=== PATIENT | male | born 1950 | race Caucasian/White ===

== ENCOUNTER 2017-09-17 08:56 | Outpatient (CLI) | payer MEDICARE ==
[~2017-09-17] VITALS: Ht 180.3 cm; Wt 112.5 kg
[2017-09-17] MEDS ORDERED: ZINC50TA51 PO (09:13)
[2017-09-17] MEDS ORDERED: MULT1CAP21 PO (09:13)
[2017-09-17] MEDS ORDERED: MULT-35 PO (09:13)
[2017-09-17] MEDS ORDERED: RIVA20TA PO (09:13)
[2017-09-17] MEDS ORDERED: KETO5DRO14 OS (09:13)
[2017-09-17] MEDS ORDERED: SIMV10TA3 PO (09:13)
[2017-09-17] MEDS ORDERED: MAGN400T39 PO (09:13)
[2017-09-17] MEDS ORDERED: DIGE1TAB PO (09:13)
[2017-09-17] MEDS ORDERED: ASCO500C17 PO (09:13)
[2017-09-17] MEDS ORDERED: LEVO200T6 PO (09:13)
[2017-09-17] MEDS ORDERED: LORA1TAB59 PO (09:13)
[2017-09-17] MEDS ORDERED: NFIPRATRNS NS (09:13)
[2017-09-17] MEDS ORDERED: DILT240T10 PO (09:13)
[2017-09-17] MEDS ORDERED: LISI-552 PO (09:13)
[2017-09-17] MEDS ORDERED: TIMO5DRO5 OP (09:13)
[2017-09-17] MEDS ORDERED: AMIO200T2 PO (09:13)
[2017-09-17 09:19] VITALS: BP 134/76
[2017-09-17 10:13] LABS: BASOPHILS % (AUTO) 0 % (0-10); EOSINOPHILS # (AUTO) 0.1 10^3/uL (0.0-0.3); EOSINOPHILS % (AUTO) 1 % (0-10); LYMPHOCYTES # (AUTO) 1.3 X 10^3 (1.0-4.0); LYMPHOCYTES % (AUTO) 18 % (12-44); MEAN CORPUSCULAR HEMOGLOBIN 30 PG (25-34); MEAN CORPUSCULAR HGB CONC 34 G/DL (32-36); MEAN CORPUSCULAR VOLUME 89 FL (80-99); MEAN PLATELET VOLUME 9.9 FL (7.4-10.4); MONOCYTES % (AUTO) 14 % (0-12); NEUTROPHILS # (AUTO) 4.8 X 10^3 (1.8-7.8); NEUTROPHILS % (AUTO) 67 % (42-75); PLATELET COUNT 239 10^3/uL (130-400); RED BLOOD COUNT 4.63 10^6/uL (4.35-5.85); RED CELL DISTRIBUTION WIDTH 14.9 % (10.0-14.5); WHITE BLOOD COUNT 7.3 10^3/uL (4.3-11.0)
[2017-09-17 10:34] LABS: CALCIUM 9.1 MG/DL (8.5-10.1); CREATININE SERUM 1.2 MG/DL (0.60-1.30); POTASSIUM 4.2 MMOL/L (3.6-5.0)
--- NOTE | 2017-09-17 10:57 | Diagnostic Imaging Report ---
PA and lateral views of the chest Indication: Preoperative evaluation. Squamous of carcinoma Findings: The lungs are clear. The heart size is normal. There is no effusion or pneumothorax The mediastinum and sravani appear unremarkable. Impression: Unremarkable study. Dictated by: Dictated on workstation # [id number]
== END 2017-09-17 11:45 ==
LOC: PREOP 08:56
PROVIDERS: ATTEND Otolaryngology Otolaryngology/Facial Plastic Surgery
DX: Z01.810 Encounter for preprocedural cardiovascular examination (principal); Z01.812 Encounter for preprocedural laboratory examination; Z11.2 Encounter for screening for other bacterial diseases; C44.320 Squamous cell carcinoma of skin of unspecified parts of face
CPT/HCPCS: 36415; 71020; 80048; 85025; 87081; 93005

== ENCOUNTER 2017-09-23 07:37 | Day surgery (SDC) | payer MEDICARE ==
[~2017-09-23] VITALS: Ht 180.3 cm; Wt 112.5 kg
[~2017-09-23 07:37] MED LIST: AMIO200T2 PO; ASCO500C17 PO; DIGE1TAB PO; DILT240T10 PO; KETO5DRO14 OS; LEVO200T6 PO; LISI-552 PO; LORA1TAB59 PO; MAGN400T39 PO; MULT-35 PO; MULT1CAP21 PO; NFIPRATRNS NS; RIVA20TA PO; SIMV10TA3 PO; TIMO5DRO5 OP; ZINC50TA51 PO
[2017-09-23 07:51] VITALS: BP 145/78
[2017-09-23] MEDS ORDERED: LACTATED RINGERS 1,000 ML IV PRN ×2 (07:56→07:57)
[2017-09-23] MEDS ORDERED: ONDANSETRON 4 MG/2 ML (SDV) Z0FRAN IV ONE (08:00)
[2017-09-23] MEDS ORDERED: FAMOTIDINE 20MG/2ML IV (PEPCID) IV ONE (08:00)
[2017-09-23] MEDS ORDERED: SCOPOLAMINE 1.5 MG (TRANSDERM-SCOP) PATCH TOP ONE (08:00)
[2017-09-23] MEDS ORDERED: FAMOTIDINE 20MG/2ML IV (PEPCID) ONE (10:09)
[2017-09-23] MEDS ORDERED: SCOPOLAMINE 1.5 MG (TRANSDERM-SCOP) PATCH ONE (10:09)
[2017-09-23] MEDS ORDERED: ONDANSETRON 4 MG/2 ML (SDV) Z0FRAN ONE (10:09)
[2017-09-23] MEDS ORDERED: LIDOCAINE/EPI 1%-1:200,000 (XYLOCAINE) 10 ML VIAL ONE (11:15)
--- NOTE | 2017-09-23 12:07 | Progress Note-Pre Operative ---
Pre-Operative Progress Note H&P Reviewed The H&P was reviewed, patient examined and no changes noted. Date Seen by Provider: Sep 23, 2017 Time Seen by Provider: 11:00 Date H&P Reviewed: Sep 23, 2017 Time H&P Reviewed: 11:00 Pre-Operative Diagnosis: Squamous Cell Carcinoma of Left Cheek CECELIA OLIVERA MD Sep 23, 2017 12:07 pm
--- NOTE | 2017-09-23 12:08 | Progress Note-Post Operative ---
Post-Operative Progess Note Surgeon (s)/Water Pollution Scientist (s) Surgeon CECELIA OLIVERA MD Water Pollution Scientist n/a Pre-Operative Diagnosis Squamous Cell Carcinoma of Left Cheek Post-Operative Diagnosis same Post-Op Procedure Note Date of Procedure: Sep 23, 2017 Name of Procedure Performed: Excision of Squaomous cell carcinoma of Left Cheek with Frozen sections Description & Findings Description and Findings: n/a Anesthesia Type local Estimated Blood Loss minimal Packing none. Specimen(s) collected/removed left cheek lesion-margins clear on frozen CECELIA OLIVERA MD Sep 23, 2017 12:08 pm
[2017-09-23] MEDS ORDERED: ACETAMINOPHEN 325 MG TABLET/CAPLET (TYLENOL) PO PRN (12:15)
[2017-09-23 12:20] VITALS: BP 149/72
[2017-09-23 12:53] VITALS: BP 149/72
== END 2017-09-23 12:53 | disposition home or self-care (01) ==
LOC: SDC 07:37
PROVIDERS: ATTEND Otolaryngology Otolaryngology/Facial Plastic Surgery
DX: C44.320 Squamous cell carcinoma of skin of unspecified parts of face (principal); I10 Essential (primary) hypertension; I48.91 Unspecified atrial fibrillation; E03.9 Hypothyroidism, unspecified; I44.0 Atrioventricular block, first degree; G47.33 Obstructive sleep apnea (adult) (pediatric); I25.2 Old myocardial infarction; Z79.01 Long term (current) use of anticoagulants; Z79.899 Other long term (current) drug therapy
CPT/HCPCS: 88305; 88331; 88332

== ENCOUNTER → 2018-07-28 | Outpatient (CLI) | payer MEDICARE ==
[~2018-07-28] MED LIST changes: -AMIO200T2 PO; +AMIO200T4 PO
--- NOTE | 2018-07-28 18:02 | Diagnostic Imaging Report ---
INDICATION: Obesity and hypertension as well as dyspnea on exertion. TIME OF EXAM: 03:17 p.m. Correlation is made with prior study from 09/17/2017. FINDINGS: The heart size is normal. The pulmonary vascularity is unremarkable. The lungs are clear. No infiltrate, effusion or pneumothorax is detected. IMPRESSION: No acute cardiopulmonary process is detected. Dictated by: Dictated on workstation # [id number]
== END ==
LOC: RAD 14:42
PROVIDERS: ATTEND Internal Medicine Cardiovascular Disease
DX: I48.0 Paroxysmal atrial fibrillation (principal); E66.9 Obesity, unspecified; I10 Essential (primary) hypertension
CPT/HCPCS: 71046

== ENCOUNTER → 2018-09-05 | Outpatient (CLI) | payer MEDICARE | LOC: CARD 13:57 | PROVIDERS: ATTEND Internal Medicine Cardiovascular Disease | DX: I10 Essential (primary) hypertension (principal); I48.0 Paroxysmal atrial fibrillation; R06.09 Other forms of dyspnea; I34.0 Nonrheumatic mitral (valve) insufficiency; E66.9 Obesity, unspecified; Z68.34 Body mass index [BMI] 34.0-34.9, adult | CPT/HCPCS: 93306 ==

== ENCOUNTER → 2018-09-07 | Outpatient (CLI) | payer MEDICARE ==
[~2018-09-07] MED LIST changes: +REGADENOSON 0.4 MG/5 ML SYR (LEXISCAN) IV ONE
[2018-09-07] MEDS: CATHETER FLUSH 10 ML SYR IV PRN ×2 (07:34→09:03)
[2018-09-07 08:56] VITALS: BP 155/73
--- NOTE | 2018-09-07 11:41 | STRESS TEST ---
DATE OF SERVICE: 09/07/2018 LEXISCAN MYOVIEW STRESS TEST REPORT Baseline heart rate is 64. Baseline blood pressure is 156/69. Baseline EKG is sinus rhythm with no ischemic changes. In summary, the patient was injected with 10.71 mCi of technetium-99 Myoview and the resting images were obtained. Then, the patient received 0.4 mg of Lexiscan followed by 30.5 mCi of technetium-99 Myoview. Throughout the test, there were no EKG changes. The resting and stress images were reviewed and compared in the short axis, horizontal long axis and vertical long axis views, the patient was unable to lift his left arm, which caused some artifacts affecting the quality of the inferior wall images. Overall, there is fixed defect at the basal to mid inferior wall with no significant ischemia. SSS is 4. SDS is 0. TID value is 1.13. On the gated images, the left ventricle appeared to be in normal size with normal contractility. Calculated ejection fraction is 53%. CONCLUSION: 1. The patient tolerated the Lexiscan well. 2. Extracardiac attenuation affecting the quality of the images, no significant ischemia or infarction was noted. 3. Normal left ventricular size with normal contractility. Calculated ejection fraction is 53%. Job ID: [id number] DocumentID: [id number] Dictated Date: 09/07/2018 11:25:02 Information Coder Date: 09/07/2018 11:41:47 Dictated By: EMI DIAL MD
== END ==
LOC: CARD 06:52
PROVIDERS: ATTEND Internal Medicine Cardiovascular Disease
DX: I10 Essential (primary) hypertension (principal); I48.0 Paroxysmal atrial fibrillation; R06.09 Other forms of dyspnea; E66.9 Obesity, unspecified; Z68.34 Body mass index [BMI] 34.0-34.9, adult
CPT/HCPCS: 78452; 93017

== ENCOUNTER 2018-10-26 20:02 | Emergency (ER) | payer MEDICARE ==
[~2018-10-26] VITALS: Ht 180.3 cm; Wt 108.9 kg
[~2018-10-26 20:02] MED LIST changes: -REGADENOSON 0.4 MG/5 ML SYR (LEXISCAN) IV ONE
--- NOTE | 2018-10-26 20:13 | ED Chest Pain ---
General Stated Complaint: CHEST PAIN Source: patient, spouse Exam Limitations: no limitations History of Present Illness Date Seen by Provider: Oct 26, 2018 Time Seen by Provider: 20:03 Initial Comments Patient presents to ER by private conveyance with his and chief complaint that he's been having palpitations, dizziness, shortness of breath and thinks she's been having atrial fib with rapid ventricular response since about 2:00 this afternoon. He's had no chest pain with it fever sweats chills cough nausea vomiting or diarrhea. He does not history of heart attacks. He follows with Dr. Burrows. He is on Cardizem and amiodarone and Xarelto for his atrial fibrillation. He says been taking these medications routinely. He does have hypothyroidism and takes Synthroid but is not sure of the dose. Denies smoking. Allergies and Home Medications Allergies Coded Allergies: codeine (Verified Allergy, Mild, VERTIGO, 09/17/17) Home Medications Amiodarone HCl 200 Mg Tablet, 200 MG PO DAILY, (Reported) Ascorbic Acid 500 Mg Capsule, 500 MG PO DAILY, (Reported) Digestive 8/L.acidoph/Pectin 1 Each Tablet, 1 EACH PO DAILY, (Reported) Diltiazem HCl 240 Mg Tab.er.24h, 240 MG PO DAILY, (Reported) Ipratropium [place] 15 Ml Naspr, 15 ML NS DAILY, (Reported) Ketorolac Tromethamine 5 Ml Drops, 5 ML OS DAILY, (Reported) Ketorolac Tromethamine 5 Ml Drops, 1 DROP OS DAILY, (Reported) Levothyroxine Sodium 200 Mcg Tablet, 200 MCG PO DAILY, (Reported) Lisinopril 20 Mg Tablet, 20 MG PO DAILY, (Reported) Loratadine/Pseudoephedrine 1 Each Tab.er.12h, 1 EACH PO DAILY, (Reported) Magnesium Oxide 400 Mg Tablet, 400 MG PO DAILY, (Reported) Multivit-Min/Hrb Cb121 1 Each Capsule, 1 EACH PO DAILY, (Reported) Multivitamin 1 Each Tablet, 1 EACH PO DAILY, (Reported) Rivaroxaban 20 Mg Tablet, 20 MG PO DAILY, (Reported) Simvastatin 10 Mg Tablet, 10 MG PO DAILY, (Reported) Timolol Maleate 5 Ml Drops, 1 DROP OP DAILY, (Reported) Zinc Amino Acid Chelate 50 Mg Tablet, 50 MG PO DAILY, (Reported) Patient Home Medication List Home Medication List Reviewed: Yes Review of Systems Review of Systems Constitutional: No chills, No diaphoresis; dizziness EENTM: No Blurred Vision, No Double Vision Respiratory: Denies Cough; Shortness of Air Cardiovascular: Denies Chest Pain, Denies Edema; Irregular Heart Rate, Lightheadedness, Palpitations; Denies Syncope Gastrointestinal: Denies Abdomen Distended, Denies Abdominal Pain, Denies Blood Streaked Stools Genitourinary: Denies Burning, Denies Discharge Musculoskeletal: No back pain, No joint pain Skin: No pruritus, No rash Psychiatric/Neurological: Denies Headache, Denies Numbness, Denies Paresthesia Past Ufjrwmh-Klhuiv-Tpftof Hx Patient Social History Alcohol Use: Denies Use Recreational Drug Use: No Smoking Status: Never a Smoker Recent Foreign Travel: No Contact w/Someone Who Travel: No Recent Hopitalizations: No Immunizations Up To Date Date of Pneumonia Vaccine: Sep 07, 2016 Date of Influenza Vaccine: Jul 12, 2017 Seasonal Allergies Seasonal Allergies: Yes Past Medical History Adenoidectomy, Thyroidectomy, Tonsillectomy Sleep Apnea Currently Using CPAP: Yes Atrial Fibrillation, High Cholesterol, Hypertension Reproductive Disorders: No Sexually Transmitted Disease: No HIV/AIDS: No Arthritis Loss of Vision: Bilateral Hearing Impairment: Denies Skin What Type of Treatment Did You: Surgical Intervention Adverse Reaction/Blood Tranf: No (N/A) Physical Exam Vital Signs Vital Signs - First Documented 10/26/18 20:05 Temp 98.0 Pulse 109 Resp 22 B/P (MAP) 185/109 (134) Pulse Ox 97 O2 Delivery Room Air Capillary Refill : Height, Weight, BMI Height: 5'11.00" Weight: 248lbs. 0.0oz. 112.097432zm; 34.6 BMI Method: General Appearance: WD/WN, Mild Distress HEENT: PERRL/EOMI, Normal ENT Inspection, Pharynx Normal, Moist Mucous Membranes Neck: Full Range of Motion, Normal Inspection, Supple Respiratory: Lungs Clear, Normal Breath Sounds, No Accessory Muscle Use, No Respiratory Distress Cardiovascular: Regular Rate, Rhythm, Normal Peripheral Pulses Gastrointestinal: Normal Bowel Sounds, Non Tender, Soft Extremity: Normal Capillary Refill, Normal Inspection, Non Tender, No Calf Tenderness Neurologic/Psychiatric: Alert, Oriented x3, No Motor/Sensory Deficits, Normal Mood/Affect Skin: Normal Color, Warm/Dry Progress/Results/Core Measures Results/Orders Lab Results Laboratory Tests Test 10/26/18 20:09 Range/Units White Blood Count 10.5 4.3-11.0 10^3/uL Red Blood Count 4.94 4.35-5.85 10^6/uL Hemoglobin 14.9 13.3-17.7 G/DL Hematocrit 44 40-54 % Mean Corpuscular Volume 89 80-99 FL Mean Corpuscular Hemoglobin 30 25-34 PG Mean Corpuscular Hemoglobin Concent 34 32-36 G/DL Red Cell Distribution Width 14.1 10.0-14.5 % Platelet Count 229 130-400 10^3/uL Mean Platelet Volume 9.5 7.4-10.4 FL Neutrophils (%) (Auto) 72 42-75 % Lymphocytes (%) (Auto) 17 12-44 % Monocytes (%) (Auto) 10 0-12 % Eosinophils (%) (Auto) 1 0-10 % Basophils (%) (Auto) 0 0-10 % Neutrophils # (Auto) 7.6 1.8-7.8 X 10^3 Lymphocytes # (Auto) 1.8 1.0-4.0 X 10^3 Monocytes # (Auto) 1.0 0.0-1.0 X 10^3 Eosinophils # (Auto) 0.1 0.0-0.3 10^3/uL Basophils # (Auto) 0.0 0.0-0.1 10^3/uL Prothrombin Time 20.3 H 12.2-14.7 SEC INR Comment 1.7 H 0.8-1.4 Activated Partial Thromboplast Time 45 H 24-35 SEC Sodium Level 139 135-145 MMOL/L Potassium Level 4.3 3.6-5.0 MMOL/L Chloride Level 107 98-107 MMOL/L Carbon Dioxide Level 20 L 21-32 MMOL/L Anion Gap 12 5-14 MMOL/L Blood Urea Nitrogen 23 H 7-18 MG/DL Creatinine 1.35 H 0.60-1.30 MG/DL Estimat Glomerular Filtration Rate 52 BUN/Creatinine Ratio 17 Glucose Level 169 H 70-105 MG/DL Calcium Level 9.7 8.5-10.1 MG/DL Corrected Calcium 8.5-10.1 MG/DL Magnesium Level 2.7 H 1.8-2.4 MG/DL Total Bilirubin 0.3 0.1-1.0 MG/DL Aspartate Amino Transf (AST/SGOT) 35 H 5-34 U/L Alanine Aminotransferase (ALT/SGPT) 43 0-55 U/L Alkaline Phosphatase 82 40-136 U/L Myoglobin 133.9 H 10.0-92.0 NG/ML Troponin I < 0.028 <0.028 NG/ML B-Type Natriuretic Peptide 17.6 <100.0 PG/ML Total Protein 7.5 6.4-8.2 GM/DL Albumin 4.7 H 3.2-4.5 GM/DL Thyroid Stimulating Hormone (TSH) 2.11 0.35-4.94 UIU/ML My Orders Orders - MYRA RIVERA Ekg Tracing (10/26/18 20:06) Continuous Ekg Monitoring (10/26/18 20:06) Cbc With Automated Diff (10/26/18 20:10) Magnesium (10/26/18 20:10) Chest 1 View, Ap/Pa Only (10/26/18 20:10) Cardiac Profile 1 (10/26/18 20:10) Comprehensive Metabolic Panel (10/26/18 20:10) Myoglobin Serum (10/26/18 20:10) Protime With Inr (10/26/18 20:10) Partial Thromboplastin Time (10/26/18 20:10) O2 (10/26/18 20:10) Lipid Panel (10/27/18 06:00) Saline Lock/Iv-Start (10/26/18 20:10) BNP (10/26/18 20:10) Thyroid Stimulating Hormone (10/26/18 20:10) Diltiazem Injection (Cardizem Injection) (10/26/18 20:15) Ns (Ivpb) (Sodium C... W/Diltiazem Injec (10/26/18 20:15) Medications Given in ED Current Medications Medications Dose Ordered Sig/Bhavya Route Start Time Stop Time Status Last Admin Dose Admin Diltiazem HCl 20 mg ONCE ONCE IVP 10/26/18 20:15 10/26/18 20:16 DC 10/26/18 20:29 20 MG Vital Signs/I&O 10/26/18 20:05 Temp 98.0 Pulse 109 Resp 22 B/P (MAP) 185/109 (134) Pulse Ox 97 O2 Delivery Room Air Progress Progress Note : Time: 21:22 Progress Note Initially we get EKG labs to include a TSH to evaluate his thyroid since she is on Synthroid and since they were all nonrevealing we had given him 20 mg of diltiazem IV followed by the drip at 5 mg. Shortly after receiving the bolus dose his heart rate went down in the 70s and 80s in a sinus rhythm. We've discussed with cardiology and we can let him go home and follow up outpatient since we don't have an ICU bed to keep him here and he is back in a sinus rhythm. Patient is comfortable and at no time as he had any chest pain. He agrees with this plan. Initial ECG Impression Date: Oct 26, 2018 Initial ECG Impression Time: 20:07 Initial ECG Rate: 90 Initial ECG Rhythm: A Fib/Flutter Initial ECG Intervals: QT (475) Initial ECG Impression: Atrial Fibrillation w/RVR Initial ECG Comparisson: Changed Comment Atrial flutter with rapid ventricular response. Rate 100-120. No ST changes. Diagnostic Imaging Diagonstic Imaging: Xray Plain Films/CT/US/NM/MRI: chest Comments NAME: YOEL DIAZ MED REC#: [id number] PHYSICIAN: MYRA RIVERA MD CC: ТАТЬЯНА ROSE MD; MYRA RIVERA Page 1 of 1 RADIOLOGY REPORT [facility] [place], [place] CC: ТАТЬЯНА ROSE MD; MYRA RIVERA Page 1 of 1 RADIOLOGY REPORT NAME: YOEL DIAZ MED REC#: [id number] PT STATUS: REG ER : [id number] PHYSICIAN: MYRA RIVERA MD ADMIT DATE: 10/26/18/ER Signed Date of Exam: 10/26/18 CHEST 1 VIEW, AP/PA ONLY INDICATION: Chest pain Portable chest 8:13 PM Heart size and pulmonary vascularity are normal. Lungs are clear. There are no effusions or pneumothoraces. IMPRESSION: Negative chest Dictated by: Dictated on workstation # [id number] Dict: 10/26/182018 Trans: 10/26/182029 Interpreted by: ТАТЬЯНА ROSE MD Electronically signed by: ТАТЬЯНА ROSE MD 10/26/182029 Reviewed: Reviewed by Me Consults : Consulting Physician: Hilary KING MD Consults Notes Discussed the case lab imaging findings with the patient is gone back and was sinus rhythm in the 70s and 80s and he agrees with letting the patient go home since we don't have an ICU bed. We'll let him follow-up outpatient with Stormy discussed medication changes. Departure Impression Primary Impression: Atrial flutter with rapid ventricular response Disposition: HOME, SELF-CARE Condition: Improved Departure-Patient Inst. Decision time for Depature: 21:24 Referrals: EMI BURROWS MD, ADAM S DO (PCP/Family) Primary Care Physician Patient Instructions: Atrial Fibrillation (DC) Add. Discharge Instructions: Please return to the ER if you begin to have any chest pain. Tomorrow morning call Dr. Burrows at his clinic and request an appointment this week to follow-up on the medications to control your atrial flutter. Do not use caffeine. Copy Copies To 1: EMI BURROWS MD, TITUS J Oct 26, 2018 20:13
[2018-10-26] MEDS ORDERED: DILTIAZEM 25 MG/5 ML INJ (CARDIZEM) VIAL IVP ONE (20:15)
[2018-10-26] MEDS ORDERED: DILTIAZEM INJECTION 125 MG in NS (IVPB) 100 ML IV SCH (20:15)
[2018-10-26 20:24] LABS: BASOPHILS % (AUTO) 0 % (0-10); EOSINOPHILS # (AUTO) 0.1 10^3/uL (0.0-0.3); EOSINOPHILS % (AUTO) 1 % (0-10); HEMATOCRIT 44 % (40-54); HEMOGLOBIN 14.9 G/DL (13.3-17.7); LYMPHOCYTES # (AUTO) 1.8 X 10^3 (1.0-4.0); LYMPHOCYTES % (AUTO) 17 % (12-44); MEAN CORPUSCULAR HEMOGLOBIN 30 PG (25-34); MEAN CORPUSCULAR HGB CONC 34 G/DL (32-36); MEAN CORPUSCULAR VOLUME 89 FL (80-99); MEAN PLATELET VOLUME 9.5 FL (7.4-10.4); MONOCYTES % (AUTO) 10 % (0-12); NEUTROPHILS # (AUTO) 7.6 X 10^3 (1.8-7.8); NEUTROPHILS % (AUTO) 72 % (42-75); PLATELET COUNT 229 10^3/uL (130-400); RED CELL DISTRIBUTION WIDTH 14.1 % (10.0-14.5); WHITE BLOOD COUNT 10.5 10^3/uL (4.3-11.0)
--- NOTE | 2018-10-26 20:31 | Diagnostic Imaging Report ---
INDICATION: Chest pain Portable chest 8:13 PM Heart size and pulmonary vascularity are normal. Lungs are clear. There are no effusions or pneumothoraces. IMPRESSION: Negative chest Dictated by: Dictated on workstation # [id number]
[2018-10-26 20:34] LABS: INR 1.7 (0.8-1.4); PROTHROMBIN TIME PATIENT 20.3 SEC (12.2-14.7)
[2018-10-26 20:40] LABS: ALANINE AMINOTRANSFERASE 43 U/L (0-55); ALBUMIN 4.7 GM/DL (3.2-4.5); ALKALINE PHOSPHATASE 82 U/L (40-136); BILIRUBIN,TOTAL 0.3 MG/DL (0.1-1.0); BUN/CREATININE RATIO 17; CALCIUM 9.7 MG/DL (8.5-10.1); CARBON DIOXIDE 20 MMOL/L (21-32); CHLORIDE 107 MMOL/L (98-107); CREATININE SERUM 1.35 MG/DL (0.60-1.30); GFR ESTIMATED 52; GLUCOSE 169 MG/DL (70-105); MAGNESIUM 2.7 MG/DL (1.8-2.4); POTASSIUM 4.3 MMOL/L (3.6-5.0); SODIUM 139 MMOL/L (135-145); TOTAL PROTEIN 7.5 GM/DL (6.4-8.2)
[2018-10-26 21:00] LABS: MYOGLOBIN SERUM 133.9 NG/ML (10.0-92.0)
[2018-10-26 21:32] VITALS: BP 148/80
== END 2018-10-26 21:35 | disposition home or self-care (01) ==
LOC: EDUNIT# 20:02 → ER 20:03
DX: I48.92 Unspecified atrial flutter (principal); I48.91 Unspecified atrial fibrillation; E03.9 Hypothyroidism, unspecified; G47.30 Sleep apnea, unspecified; E78.00 Pure hypercholesterolemia, unspecified; I10 Essential (primary) hypertension; Z88.5 Allergy status to narcotic agent; Z79.01 Long term (current) use of anticoagulants; Z90.89 Acquired absence of other organs
CPT/HCPCS: 36415; 71045; 80053; 83735; 83874; 83880; 84443; 84484; 85025; 85610; 85730; 93005

== ENCOUNTER 2018-10-29 09:01 | Emergency (ER) | payer MEDICARE ==
[~2018-10-29] VITALS: Ht 180.3 cm; Wt 108.9 kg
[2018-10-29] MEDS ORDERED: ASPIRIN 81 MG CHEW (CHILDREN'S ASA) PO ONE (09:15)
[2018-10-29 09:28] LABS: BASOPHILS % (AUTO) 0 % (0-10); EOSINOPHILS # (AUTO) 0.1 10^3/uL (0.0-0.3); EOSINOPHILS % (AUTO) 1 % (0-10); HEMATOCRIT 45 % (40-54); HEMOGLOBIN 14.8 G/DL (13.3-17.7); LYMPHOCYTES # (AUTO) 1.6 X 10^3 (1.0-4.0); LYMPHOCYTES % (AUTO) 20 % (12-44); MEAN CORPUSCULAR HEMOGLOBIN 30 PG (25-34); MEAN CORPUSCULAR HGB CONC 33 G/DL (32-36); MEAN CORPUSCULAR VOLUME 90 FL (80-99); MEAN PLATELET VOLUME 9.5 FL (7.4-10.4); MONOCYTES # (AUTO) 0.8 X 10^3 (0.0-1.0); MONOCYTES % (AUTO) 10 % (0-12); NEUTROPHILS # (AUTO) 5.2 X 10^3 (1.8-7.8); NEUTROPHILS % (AUTO) 68 % (42-75); PLATELET COUNT 223 10^3/uL (130-400); RED CELL DISTRIBUTION WIDTH 14.2 % (10.0-14.5); WHITE BLOOD COUNT 7.6 10^3/uL (4.3-11.0)
--- NOTE | 2018-10-29 09:38 | Diagnostic Imaging Report ---
EXAMINATION: Chest radiograph, portable AP view. DATE: October 29, 2018 at 9:30 hours. INDICATION: 67-year-old male, atrial fibrillation. Chest pain. COMPARISON: October 26, 2018. FINDINGS: Stable overall appearance of the cardiomediastinal silhouette. There is no identified pneumothorax. There is no large pleural effusion. There is no identified focal airspace consolidation. IMPRESSION: No identified acute cardiopulmonary abnormality. Dictated by: Dictated on workstation # [id number]
[2018-10-29 09:40] LABS: INR 2.6 (0.8-1.4); PROTHROMBIN TIME PATIENT 28.2 SEC (12.2-14.7)
[2018-10-29 09:49] LABS: ALANINE AMINOTRANSFERASE 41 U/L (0-55); ALBUMIN 4.7 GM/DL (3.2-4.5); ALKALINE PHOSPHATASE 78 U/L (40-136); BILIRUBIN,TOTAL 0.5 MG/DL (0.1-1.0); BUN/CREATININE RATIO 18; CALCIUM 9.4 MG/DL (8.5-10.1); CARBON DIOXIDE 21 MMOL/L (21-32); CHLORIDE 107 MMOL/L (98-107); CREATININE SERUM 1.28 MG/DL (0.60-1.30); GFR ESTIMATED 56; GLUCOSE 124 MG/DL (70-105); MAGNESIUM 2.6 MG/DL (1.8-2.4); POTASSIUM 4.3 MMOL/L (3.6-5.0); SODIUM 138 MMOL/L (135-145); TOTAL PROTEIN 7.2 GM/DL (6.4-8.2)
[2018-10-29 09:55] LABS: MYOGLOBIN SERUM 90.1 NG/ML (10.0-92.0)
--- NOTE | 2018-10-29 09:55 | ED Chest Pain ---
General Chief Complaint: Chest Pain Stated Complaint: A-FIB ISSUES Nursing Triage Note: pt presents to ed with complaints of chest pressure starting when he was laying in bed this am around 0600. pt also reports palpitations and has hx of afib. pt reports upon arrival to ed pt is no longer having chest pressure. Nursing Sepsis Screen: No Definite Risk Source: patient Exam Limitations: no limitations History of Present Illness Date Seen by Provider: Oct 29, 2018 Time Seen by Provider: 09:04 Initial Comments Here with report of chest pressure starting at about 6 a.m. as he was waking up. He believes that it's related to his atrial fibrillation. He has had intermittent atrial fibrillation over the last few days and was actually seen here a few days ago for the same. Had follow-up with Dr. Burrows on morning. They're continuing his current meds and he is supposed to have follow- up with Dr. Hillman on Wednesday afternoon this week. States that he hadn't central pressure that was moderate in intensity and has come and gone over the last couple of hours. Currently without chest pressure and feels a little better. Does have long history of atrial fibrillation and problems related to that. Has had previous ablation. Timing/Duration: 1-3 hours Severity/Quality: moderate, pressure Location: central Radiation: no radiation Prior CP/Workup: echocardiography, stress test Modifying Factors: improves with rest ASA po METALLURGY LABORATORY TECHNICIAN: No NTG SL METALLURGY LABORATORY TECHNICIAN: No Associated Symptoms: No abdominal pain, No diaphoresis, No fever/chills, No nausea/vomiting, No shortness of breath, No weakness Allergies and Home Medications Allergies Coded Allergies: codeine (Verified Allergy, Mild, VERTIGO, 09/17/17) Home Medications Amiodarone HCl 200 Mg Tablet, 200 MG PO DAILY, (Reported) Ascorbic Acid 500 Mg Capsule, 500 MG PO DAILY, (Reported) Digestive 8/L.acidoph/Pectin 1 Each Tablet, 1 EACH PO DAILY, (Reported) Diltiazem HCl 240 Mg Tab.er.24h, 240 MG PO DAILY, (Reported) Ipratropium Martin 15 Ml Naspr, 15 ML NS DAILY, (Reported) Ketorolac Tromethamine 5 Ml Drops, 5 ML OS DAILY, (Reported) Ketorolac Tromethamine 5 Ml Drops, 1 DROP OS DAILY, (Reported) Levothyroxine Sodium 200 Mcg Tablet, 200 MCG PO DAILY, (Reported) Lisinopril 20 Mg Tablet, 20 MG PO DAILY, (Reported) Loratadine/Pseudoephedrine 1 Each Tab.er.12h, 1 EACH PO DAILY, (Reported) Magnesium Oxide 400 Mg Tablet, 400 MG PO DAILY, (Reported) Multivit-Min/Hrb Cb121 1 Each Capsule, 1 EACH PO DAILY, (Reported) Multivitamin 1 Each Tablet, 1 EACH PO DAILY, (Reported) Rivaroxaban 20 Mg Tablet, 20 MG PO DAILY, (Reported) Simvastatin 10 Mg Tablet, 10 MG PO DAILY, (Reported) Timolol Maleate 5 Ml Drops, 1 DROP OP DAILY, (Reported) Zinc Amino Acid Chelate 50 Mg Tablet, 50 MG PO DAILY, (Reported) Patient Home Medication List Home Medication List Reviewed: Yes Review of Systems Review of Systems Constitutional: see HPI; No chills, No fever EENTM: No Symptoms Reported Respiratory: No Symptoms Reported Cardiovascular: See HPI, Chest Pain; Denies Edema; Irregular Heart Rate, Palpitations Gastrointestinal: Denies Nausea, Denies Vomiting Genitourinary: No Symptoms Reported Musculoskeletal: no symptoms reported Skin: no symptoms reported Psychiatric/Neurological: No Symptoms Reported All Other Systems Reviewed Negative Unless Noted: Yes Past Lsipkjv-Icqlcm-Lhddnw Hx Past Med/Social Hx: Reviewed Nursing Past Med/Soc Hx Patient Social History Alcohol Use: Denies Use Recreational Drug Use: No Smoking Status: Never a Smoker 2nd Hand Smoke Exposure: No Recent Foreign Travel: No Contact w/Someone Who Travel: No Recent Infectious Disease Expo: No Recent Hopitalizations: No Physical Abuse: No Sexual Abuse: No Mistreated: No Fear: No Immunizations Up To Date Date of Pneumonia Vaccine: Sep 07, 2016 Date of Influenza Vaccine: Jul 12, 2017 Seasonal Allergies Seasonal Allergies: Yes Past Medical History Surgeries: Yes (R KNEE SCOPE, RIGHT HAND LITTLE FINGER, RIGHT BIG TOE, CATARACTS,ablasion ) Adenoidectomy, Thyroidectomy, Tonsillectomy Respiratory: Yes Sleep Apnea Currently Using CPAP: Yes Cardiac: Yes (ABLATION ) Atrial Fibrillation, High Cholesterol, Hypertension Neurological: No Reproductive Disorders: No Sexually Transmitted Disease: No HIV/AIDS: No Genitourinary: No Gastrointestinal: No Musculoskeletal: Yes Arthritis Endocrine: Yes Loss of Vision: Bilateral Hearing Impairment: Denies Cancer: Yes Skin What Type of Treatment Did You: Surgical Intervention Psychosocial: No Integumentary: No Blood Disorders: No Adverse Reaction/Blood Tranf: No (N/A) Family Medical History Reviewed Nursing Family Hx Physical Exam Vital Signs Vital Signs - First Documented 10/29/18 09:27 Temp 96.8 Pulse 74 Resp 20 B/P (MAP) 168/86 (113) Pulse Ox 98 O2 Delivery Room Air Capillary Refill : Less Than 3 Seconds Height, Weight, BMI Height: 5'11.00" Weight: 240lbs. 0.0oz. 108.334364hk; 34.6 BMI Method:Stated General Appearance: No Apparent Distress, WD/WN HEENT: PERRL/EOMI, Pharynx Normal Neck: Non Tender, Supple Respiratory: Lungs Clear, Normal Breath Sounds Cardiovascular: Regular Rate, Rhythm, No Edema, No Murmur Gastrointestinal: Non Tender, Soft Extremity: Normal Range of Motion, Non Tender Neurologic/Psychiatric: Alert, Oriented x3 Skin: Normal Color, Warm/Dry Progress/Results/Core Measures Results/Orders Lab Results Laboratory Tests Test 10/29/18 09:19 10/29/18 11:35 Range/Units White Blood Count 7.6 4.3-11.0 10^3/uL Red Blood Count 5.02 4.35-5.85 10^6/uL Hemoglobin 14.8 13.3-17.7 G/DL Hematocrit 45 40-54 % Mean Corpuscular Volume 90 80-99 FL Mean Corpuscular Hemoglobin 30 25-34 PG Mean Corpuscular Hemoglobin Concent 33 32-36 G/DL Red Cell Distribution Width 14.2 10.0-14.5 % Platelet Count 223 130-400 10^3/uL Mean Platelet Volume 9.5 7.4-10.4 FL Neutrophils (%) (Auto) 68 42-75 % Lymphocytes (%) (Auto) 20 12-44 % Monocytes (%) (Auto) 10 0-12 % Eosinophils (%) (Auto) 1 0-10 % Basophils (%) (Auto) 0 0-10 % Neutrophils # (Auto) 5.2 1.8-7.8 X 10^3 Lymphocytes # (Auto) 1.6 1.0-4.0 X 10^3 Monocytes # (Auto) 0.8 0.0-1.0 X 10^3 Eosinophils # (Auto) 0.1 0.0-0.3 10^3/uL Basophils # (Auto) 0.0 0.0-0.1 10^3/uL Prothrombin Time 28.2 H 12.2-14.7 SEC INR Comment 2.6 H 0.8-1.4 Activated Partial Thromboplast Time 53 H 24-35 SEC Sodium Level 138 135-145 MMOL/L Potassium Level 4.3 3.6-5.0 MMOL/L Chloride Level 107 98-107 MMOL/L Carbon Dioxide Level 21 21-32 MMOL/L Anion Gap 10 5-14 MMOL/L Blood Urea Nitrogen 23 H 7-18 MG/DL Creatinine 1.28 0.60-1.30 MG/DL Estimat Glomerular Filtration Rate 56 BUN/Creatinine Ratio 18 Glucose Level 124 H 70-105 MG/DL Calcium Level 9.4 8.5-10.1 MG/DL Corrected Calcium 8.5-10.1 MG/DL Magnesium Level 2.6 H 1.8-2.4 MG/DL Total Bilirubin 0.5 0.1-1.0 MG/DL Aspartate Amino Transf (AST/SGOT) 31 5-34 U/L Alanine Aminotransferase (ALT/SGPT) 41 0-55 U/L Alkaline Phosphatase 78 40-136 U/L Myoglobin 90.1 65.1 10.0-92.0 NG/ML Troponin I < 0.028 < 0.028 <0.028 NG/ML Total Protein 7.2 6.4-8.2 GM/DL Albumin 4.7 H 3.2-4.5 GM/DL My Orders Orders - MAJOТАТЬЯНА PATEL MD Cbc With Automated Diff (10/29/18 09:04) Magnesium (10/29/18 09:04) Chest 1 View, Ap/Pa Only (10/29/18 09:04) Ekg Tracing (10/29/18 09:04) Cardiac Profile 1 (10/29/18 09:04) Comprehensive Metabolic Panel (10/29/18 09:04) Myoglobin Serum (10/29/18 09:04) Protime With Inr (10/29/18 09:04) Partial Thromboplastin Time (10/29/18 09:04) O2 (10/29/18 09:04) Monitor-Rhythm Ecg Trace Only (10/29/18 09:04) Lipid Panel (10/30/18 06:00) Saline Lock/Iv-Start (10/29/18 09:04) Aspirin Chewable Tablet (Baby Aspirin Ch (10/29/18 09:15) Ekg Tracing (10/29/18 11:21) Troponin I (10/29/18 11:21) Myoglobin Serum (10/29/18 11:21) Medications Given in ED Current Medications Medications Dose Ordered Sig/Bhavya Route Start Time Stop Time Status Last Admin Dose Admin Aspirin 324 mg ONCE ONCE PO 10/29/18 09:15 10/29/18 09:16 DC 10/29/18 09:45 324 MG Vital Signs/I&O 10/29/18 10/29/18 09:27 09:27 Temp 96.8 Pulse 74 Resp 20 B/P (MAP) 168/86 (113) Pulse Ox 98 O2 Delivery Room Air Blood Pressure Mean: 113 Progress Progress Note : Progress Note Seen and evaluated. IV, labs, EKG and chest x-ray ordered. ASA 324 mg by mouth ordered. We will hold nitroglycerin as patient is currently pain-free. Monitor patient. 1150: No acute findings. We did discuss options for further evaluation including admission versus repeat labs. He has been chest pain-free throughout visit and he would like to go home. He does have appointment with cardiology on Wednesday. We can recheck his labs and EKG and evaluate delta troponin. 1130: Repeat EKG done. Pending labs. 1212: Overall no changes in EKG and the troponin and myoglobin remained negative. Patient is still without chest pain. Discharged home with return precautions. Patient verbalize understanding instructions and agreement with plan. He will keep appointment with Dr. Hillman on Wednesday and I will send a copy the chart to him as well. Initial ECG Impression Date: Oct 29, 2018 Initial ECG Impression Time: 09:02 Initial ECG Rate: 78 Initial ECG Rhythm: Normal Sinus Comment Sinus rhythm with right axis deviation. No evidence of ST elevation ID. PA-C noted. Similar to previous of 10/26/18. First degree block noted. Interpreted by me. EKG : EKG Time: 11:29 Rate: 64 Rhythm: Normal Sinus Comment Sinus rhythm with first-degree AV block. EKG shows left anterior fascicular block but overall morphology appears similar with far left axis deviation and set up for right axis deviation although essentially the same from previous. No evidence of ST elevation ID. Interpreted by me. Diagnostic Imaging Diagonstic Imaging: Xray Plain Films/CT/US/NM/MRI: chest Comments NAME: [facility] REC#: [id number] PT STATUS: REG ER : 1950 PHYSICIAN: ТАТЬЯНА KASPER MD ADMIT DATE: 10/29/18/ER Signed Date of Exam: 10/29/18 CHEST 1 VIEW, AP/PA ONLY EXAMINATION: Chest radiograph, portable AP view. DATE: October 29, 2018 at 9:30 hours. INDICATION: 67-year-old male, atrial fibrillation. Chest pain. COMPARISON: October 26, 2018. FINDINGS: Stable overall appearance of the cardiomediastinal silhouette. There is no identified pneumothorax. There is no large pleural effusion. There is no identified focal airspace consolidation. IMPRESSION: No identified acute cardiopulmonary abnormality. Dictated by: Dictated on workstation # [id number] Dict: 10/29/18935 Trans: 10/29/18938 Interpreted by: BASIM CRUZ MD Electronically signed by: BASIM CRUZ MD 10/29/18938 Departure Impression Primary Impression: Chest pain Qualified Codes: R07.9 - Chest pain, unspecified Disposition: 01 HOME, SELF-CARE Condition: Improved Departure-Patient Inst. Decision time for Depature: 12:15 Referrals: Hilary HILLMAN MD, ADAM S DO (PCP/Family) Primary Care Physician Patient Instructions: Chest Pain (DC) Add. Discharge Instructions: All discharge instructions reviewed with patient and/or family. Voiced understanding. Keep appointment with flight teacher as scheduled on Wednesday. Return for worsening, fever, vomiting, weakness, breathing problems or other concerns as needed. Continue home medicines as previously prescribed. Copy Copies To 1: Hilary HILLMAN MD, TIMOTHY D MD Oct 29, 2018 09:55
[2018-10-29 12:09] LABS: MYOGLOBIN SERUM 65.1 NG/ML (10.0-92.0)
[2018-10-29 12:29] VITALS: BP 147/82
== END 2018-10-29 12:28 | disposition home or self-care (01) ==
LOC: EDUNIT# 09:01 → ER 09:02
DX: R07.89 Other chest pain (principal); I48.91 Unspecified atrial fibrillation; G47.30 Sleep apnea, unspecified; E78.00 Pure hypercholesterolemia, unspecified; I10 Essential (primary) hypertension; Z85.828 Personal history of other malignant neoplasm of skin; Z88.5 Allergy status to narcotic agent; Z79.01 Long term (current) use of anticoagulants; Z90.89 Acquired absence of other organs
CPT/HCPCS: 36415; 71045; 80053; 83735; 83874; 84484; 85025; 85610; 85730; 93041

== ENCOUNTER 2018-11-14 08:52 | Outpatient (RCR) | payer MEDICARE ==
[~2018-11-14 08:52] MED LIST changes: -RIVA20TA PO; +RIVA20TA2 PO
== END 2019-02-05 | disposition home or self-care (01) ==
LOC: CARD 08:52
PROVIDERS: ATTEND Internal Medicine Interventional Cardiology
DX: I48.0 Paroxysmal atrial fibrillation (principal)
CPT/HCPCS: 93270

== ENCOUNTER → 2018-11-21 | Outpatient (CLI) | payer MEDICARE ==
[~2018-11-21] MED LIST changes: +RIVA20TA PO; -RIVA20TA2 PO
== END ==
LOC: RT 07:38
PROVIDERS: ATTEND Internal Medicine Interventional Cardiology
DX: Z51.81 Encounter for therapeutic drug level monitoring (principal); Z79.899 Other long term (current) drug therapy
CPT/HCPCS: 94060; 94726; 94729

== ENCOUNTER 2020-02-16 09:12 | Outpatient (RCR) | payer MEDICARE ==
[~2020-02-16] VITALS: Ht 180 cm; Wt 106.8 kg
[~2020-02-16 09:12] MED LIST changes: +AMIO400T5 PO; +ASCO500T7 PO; +CYAN-23 PO; +FERR-84 PO; +MULT-1136 PO; -RIVA20TA PO; +RIVA20TA2 PO; +ROPI2TAB6 PO; +SIMV10TA26 PO; -SIMV10TA3 PO
[2020-02-21] MEDS ORDERED: TRAM50TA3 PO (14:49)
== END 2020-02-16 14:49 | disposition home or self-care (01) ==
LOC: PREOP 09:12
PROVIDERS: ATTEND Surgery
DX: Z01.818 Encounter for other preprocedural examination (principal); Z01.812 Encounter for preprocedural laboratory examination; Z11.59 Encounter for screening for other viral diseases; C44.609 Unspecified malignant neoplasm of skin of left upper limb, including shoulder
CPT/HCPCS: 87635

== ENCOUNTER → 2021-11-14 | Outpatient (CLI) | payer MEDICARE ==
[~2021-11-14] MED LIST changes: -AMIO200T4 PO; +AMIO200T65 PO; -LISI-552 PO; +LISI20TA26 PO; +TRAM50TA3 PO
== END ==
LOC: CARD 15:00
PROVIDERS: ATTEND Internal Medicine Cardiovascular Disease
DX: I34.0 Nonrheumatic mitral (valve) insufficiency (principal); I11.9 Hypertensive heart disease without heart failure
CPT/HCPCS: 93306

== ENCOUNTER → 2022-02-04 | Day surgery (SDC) | payer MEDICARE ==
[~2022-02-04] VITALS: Ht 180.3 cm; Wt 112.7 kg
[~2022-02-04] MED LIST changes: +LIDOCAINE 1% INJ 20 ML VIAL ONE
[2022-02-04 10:00] VITALS: BP 142/78
--- NOTE | 2022-02-04 14:05 | Implantation of Loop Monitor ---
Implant of Loop Monitior IMPLANTATION OF LOOP MONITOR REPORT DATE OF PROCEDURE: 02/04/22 PREOP DIAGNOSIS: Paroxysmal atrial fibrillation POSTOP DIAGNOSIS: Paroxysmal atrial fibrillation PROCEDURE DETAILS: The patient is a 71 male with history of paroxysmal atrial fibrillation requiring long-term surveillance. Therefore implantable loop recorder was discussed and agreed with the patient. Informed consent was taken. All risks and complications were discussed at length. The patient was draped and prepped in the usual sterile fashion. Local anesthesia was lidocaine, which was given in the substernal area close to the 4th intercostal space. Loop monitor [employer] with serial number [id number] was implanted according to the protocol. Steri- Strips were placed at the end of the procedure. There were no complications and the patient tolerated the procedure well. The device was interrogated with a voltage of. ANESTHESIA: Local anesthesia with lidocaine. COMPLICATIONS: None CONTRAST/FLUOROSCOPY: None CONCLUSION: Successful loop implantation with no complication FINAL DIAGNOSIS: Paroxysmal atrial fibrillation Palpitation Hypertension EMI DIAL MD February 04, 2022 14:05
== END ==
LOC: CATH 09:30
PROVIDERS: ATTEND Internal Medicine Cardiovascular Disease
DX: I48.0 Paroxysmal atrial fibrillation (principal); I48.92 Unspecified atrial flutter; I10 Essential (primary) hypertension; R00.2 Palpitations; I65.29 Occlusion and stenosis of unspecified carotid artery; E78.5 Hyperlipidemia, unspecified; J44.9 Chronic obstructive pulmonary disease, unspecified; G47.33 Obstructive sleep apnea (adult) (pediatric); E78.2 Mixed hyperlipidemia; H34.8132 Central retinal vein occlusion, bilateral, stable; Z79.01 Long term (current) use of anticoagulants; Z99.89 Dependence on other enabling machines and devices; Z85.828 Personal history of other malignant neoplasm of skin
CPT/HCPCS: 33285; C1764

== ENCOUNTER 2022-08-02 17:53 | Inpatient (IN) | payer MEDICARE ==
[~2022-08-02] VITALS: Ht 180.3 cm; Wt 115.3 kg
[~2022-08-02 17:53] MED LIST changes: -LIDOCAINE 1% INJ 20 ML VIAL ONE
--- OUTSIDE RECORDS SUMMARY | 2022-08-02 19:29 | XMS REPORT | Clinical Summary ---
Author Author [facility] Organization [facility] Address Unknown Phone Unavailable Care Team Providers Care Sheet Metal Superintendent Name Role Phone Luis F Galvan MD Unavailable Unavailable Yimi Thomas MD Unavailable [phone] Rodrigo Ocampo PCP Source Comments Some departments are not documenting in the electronic medical record. If you d o not see the information that you expected, contact Release of Information in [facility] Information Management department at [phone] for further assistan ce in locating additional records.[facility] Allergies Comments Active Allergy Reactions Severity Noted Date "Cannot tolerate medication" Codeine SEE COMMENTS Low 01/28/2016 Medications End Date Status Medication Sig Dispensed Refills Start Date Active timoloL maleate Apply 1 drop 0 (TIMOPTIC) 0.5 % to both eyes ophthalmic drops at bedtime daily. Active lisinopril (PRINIVIL; Take 20 mg by 0 ZESTRIL) 20 mg tablet mouth twice daily. Active rivaroxaban (XARELTO) 20 Take 20 mg by 0 mg tab tablet mouth daily with breakfast. Active loratadine/pseudoephedrin Take 1 tablet 0 e (CLARITIN-D 12 HOUR) by mouth as 5/120 mg tablet Needed. Active atorvastatin (LIPITOR) 10 Take 10 mg by 0 mg tablet mouth daily. Active ipratropium (ATROVENT) Apply 2 0 0.03 % nasal spray sprays to each nostril as directed as Needed. Active levothyroxine (SYNTHROID) Take 200 mcg 0 200 mcg tablet by mouth daily 30 minutes before breakfast. Active magnesium oxide (MAG-OX) Take 400 mg 0 400 mg (241.3 mg by mouth magnesium) tablet daily. Active vitamins, multiple tablet Take 1 tablet 0 by mouth daily. Active rOPINIRole (REQUIP) 2 mg Take 2 mg by 0 tablet mouth three times daily. Active cyanocobalamin (VITAMIN Take 1,000 0 B-12) 1,000 mcg tablet mcg by mouth daily. Active Zinc 50 mg tab Take 50 mg by 0 mouth at bedtime daily. Active pantoprazole DR Take 1 tablet 74 tablet 0 01/09/20 2 (PROTONIX) 40 mg tablet twice daily 1 1 week before procedure and 1month after procedure Active ascorbic acid (VITAMIN C) Take 2,000 mg 0 1,000 mg tablet by mouth daily. pt takes 2-3 1000 mg tablets daily Active ferrous sulfate (FEOSOL) Take 325 mg 0 325 mg (65 mg iron) by mouth tablet daily. Take on an empty stomach at least 1 hour before or 2 hours after food. Active fish oil /omega-3 fatty Take 1 0 acids (SEA-OMEGA) capsule by 340/1000 mg capsule mouth daily. Active fluticasone propionate Apply 2 0 (FLONASE) 50 sprays to mcg/actuation nasal each nostril spray, suspension as directed daily as needed. Shake bottle gently before using. Active flecainide (TAMBOCOR) 50 Take one 10 tablet 0 0 /25/202 mg tabletIndications: tablet by 1 paroxysmal atrial mouth as fibrillation Needed. Okyn-Lg-Are-P ocket Approach: If you have recurrent AFIB and it lasts longer then 30 minutes or is very symptomatic, then take 100 mg Flecainide with any recurrent events and a second 100 mg Flecainide 15-30 minutes later if rhythm has not converted. Call our office if you have to use Flecainide more than 2 times a month or if you have an episode that last greater than 12 hours despite Flecainide. 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 CHADS-VASC = 2 (age, HTN) Current diagnosis of DANIELE ECHO: [place] [facility] 09/05/2018 LVEF 55-65% LA normal size (4.0cm) RA normal size 01/15/2021 - LAAA with Dr. Kraft: Mikaela rodriguez Atrial Fibrillation existed at baseline. -Status post Cryo-Balloon Ablation of AFIB. Successful ablation of LA to isolate pulmonary vei ns. CTI block intact from prior ablation. Atrial flutter 11/18/2020 Overview: 05/08/2015 - ECHO: ([facility]) The findings are consistent with hypertensive heart disease. 05/09/2015 - MPI: ([facility]) Negative. 05/10/2015 - AFL RFA: ([facility]) Typical counterclockwise cavotricuspid isthmus dependent atrial flutter. Successful cava tricuspid isthmus ablation with radiofrequency en ergy (atrial flutter ablation). Sabianist of sinus rhythm with ablati on. 01/30/2016 - ECHO: ([facility]) Hyp ercontractile left ventricle. Left ventricular hypertrophy, concentric. M ild mitral regurgitation (annular calcification). Mild outflow gradient with valsalva (2.9/35). Normal right ventricle. 09/05/2018 - ECHO: ([place] [facility]) LV cavity is normal. Wall thickness is normal. Systolic fun ction is normal. EF ~ 55%. There were no regional wall motion abnormalit ies identified. Features are consistent with a pseudonormal LV filli ng pattern, with concomitant abnormal relaxation and increased filli ng pressure (grade 2 diastolic dysfunction) Mild MVR. PASP ~ 25mmHg. 09/07/2018 - Stress Test: Extracardiac attenuation affecting the quality of the images, no significant ischemia or infarction noted. Normal LV size with normal contractility. EF = 53%. COPD (chronic obstructive pulmonary disease) 021 DANIELE (obstructive sleep apnea) 11/18/2020 Overview: On CPAP Central retinal vein occlusion, both eyes 11/18/2020 Carotid artery stenosis 11/18/2020 Surgical History Surgery Date Site/Laterality Comments ELECTROCARDIOGRAM DOPPLER ECHOCARDIOGRAPHY CARDIOVASCULAR STRESS TEST THYROIDECTOMY ABLATION OF DYSRHYTHMIC 04/27/2015 - FOCUS 05/27/2015 TONSIL AND ADENOIDECTOMY KNEE SURGERY Right FOOT SURGERY Right CATARACT REMOVAL EYE SURGERY Left vitreous membrane WRIST SURGERY Right SKIN CANCER EXCISION SINUS SURGERY 09/27/2010 - deviated septum 09/26/2011 TRANSESOPHAGEAL 01/15/2021 N/A POSSIBLE TRANS ESOPHAGEAL ECHOCARDIOGRAM DURING ECHOCARDIOGRAM - INTERVENTION perfor med by Cath, Physician at 2 01/16/2021 EP LAB Medical History Medical History Date Comments Basal cell carcinoma Squamous cell carcinoma Neoplasm of uncertain behavior of soft 11/18/2020 tissue Neoplasm of uncertain behavior of skin 11/18/2020 Mixed hyperlipidemia 11/18/2020 Obesity 11/18/2020 Hypertension 11/18/2020 Paroxysmal atrial fibrillation (HCC) 11/18/2020 Atrial flutter (HCC) 11/18/2020 COPD (chronic obstructive pulmonary 11/18/2020 disease) (HCC) DANIELE (obstructive sleep apnea) 11/18/2020 On CPAP Central retinal vein occlusion, both 11/18/2020 eyes Carotid artery stenosis 11/18/2020 RBBB (right bundle branch block) Family History Medical History Relation Name Comments Heart Failure Father Cancer Mother Arrhythmia Sister AFL Osteoporosis Sister Relation Name Status Comments Father Mother Sister Social History Date Tobacco Use Types Packs/Day Years Used Never Smoker Smokeless Tobacco: Never Used Comments Alcohol Use Standard Drinks/Week Not Currently 0 (1 standard drink = 0.6 o z pure alcohol) Sex Assigned at Date Recorded Male 11/21/2020 2:15 PM [facility] Obstetrics History Last Filed Vital Signs Reading Time Taken Comments Vital Sign 152/72 05/21/2021 3:32 PM CDT Blood Pressure 64 05/21/2021 3:32 PM CDT Pulse 36.6 C (97.9 F) 01/16/2021 6:24 AM CDT Temperature - - Respiratory Rate 96% 05/21/2021 3:32 PM CDT Oxygen Saturation - - Inhaled Oxygen Concentration 110.4 kg (243 lb 6.4 oz) 05/21/2021 3:32 PM CDT Weight 180.3 cm (5' 11") 05/21/2021 3:32 PM CDT Height 33.95 05/21/2021 3:32 PM CDT Body Mass Index Plan of Treatment Health Maintenance Due Date Last Done Comments MEDICARE ANNUAL WELLNESS 1950 VISIT COVID-19 VACCINE (#1) 05/02/1951 PNEUMOCOCCAL VACCINE (1 - 1954 PCV) DTAP/TDAP VACCINES (1 - 1966 Tdap) HEPATITIS C SCREENING 1966 PHYSICAL (COMPREHENSIVE) 1966 EXAM COLORECTAL CANCER 1993 SCREENING SHINGLES RECOMBINANT 1998 VACCINE (1 of 2) ADVANCED CARE PLANNING 09/27/2021 DISCUSSION AND DOCUMENTATION DEPRESSION SCREENING 09/27/2021 INFLUENZA VACCINE 04/27/2022 07/28/2020 Medical Devices Device Identifier Shelf Expiration Date Model / Serial / L ot Implanted Type Area Manufactur er Plate Plate Right: Wrist Results Not on filefrom Last 3 Months Insurance Type Payer Benefit Subscriber ID Effective Phone Address Plan / Dates Group Medicare AETNA MEDICARE AETNA [id number] 2019-P [phone] [id number] [place] [address] Advance Directives Date Inactivated Comments Code Status Date Activated 01/16/2021 12:42 PM Full Code 01/15/2021 6:02 AM Provider has discussed Code Status No, discussion no t w/Patient or Family? necessary based on Dx Care Teams Start Date End Date Sheet Metal Superintendent Relationship Specialty 11/26/20 Rodrigo Ocampo PCP - [address] [place] [address] 01/24/16 Luis F Galvan MD Dermatology Forwarding Address Unknown 01/28/16 William, Dermatology MD Yimi [address] [facility] [place] [address]
[2022-08-02] MEDS ORDERED: ONDANSETRON 4 MG/2 ML (SDV) Z0FRAN IV PRN (19:30)
[2022-08-02] MEDS ORDERED: CALCIUM CARBONATE 500 MG (TUMS) TAB.CHEW PO PRN (19:30)
[2022-08-02] MEDS ORDERED: MELATONIN 3 MG TABLET PO PRN (19:30)
[2022-08-02] MEDS ORDERED: ONDANSETRON 4 MG (ZOFRAN) ORAL DISSOLVE TAB PO PRN (19:30)
[2022-08-02] MEDS ORDERED: ACETAMINOPHEN 325 MG TABLET PO PRN (19:30)
[2022-08-02] MEDS ORDERED: polyethylene glycoL POWDER 17 GM (MIRALAX) PACK PO PRN (19:30)
[2022-08-02] MEDS ORDERED: BISACODYL 10 MG SUPP (DULCOLAX) PR PRN (19:30)
[2022-08-02] MEDS ORDERED: cefTRIAXone 1 GM PRE-MIX 50 ML IV SCH (20:45)
[2022-08-02] MEDS ORDERED: cefTRIAXone 1,000 MG VIAL ONE (21:12)
[2022-08-02] MEDS ORDERED: NS (IVPB) 50 ML ONE (21:13)
[2022-08-02] MEDS ORDERED: RT-ALBUTEROL SULF 2.5 MG/3 ML PRE-MIX VIAL INH PRN (21:30)
[2022-08-02] MEDS ORDERED: MTP25TSR PO (21:45)
[2022-08-02] MEDS ORDERED: FLEC100T PO (21:46)
[2022-08-02] MEDS ORDERED: ATOR10TA66 PO (21:47)
[2022-08-02] MEDS ORDERED: LEVO100T7 PO (21:48)
[2022-08-02] MEDS ORDERED: LEVO112T55 PO (21:48)
[2022-08-02] MEDS ORDERED: FLECAINIDE 100 MG (TAMBOCOR) TAB PO SCH (22:00)
[2022-08-02] MEDS: FLECAINIDE 100 MG (TAMBOCOR) TAB PO SCH (22:37)
[2022-08-02 23:00] VITALS: BP 120/72
[2022-08-02 23:13] VITALS: BP 120/72
[2022-08-03] VITALS: BP 127/73
[2022-08-03 01:00] VITALS: BP 111/65
[2022-08-03 02:00] VITALS: BP 126/80
[2022-08-03 04:00] VITALS: BP 140/74
[2022-08-03 05:03] LABS: HEMATOCRIT 27 % (40-54); HEMOGLOBIN 7.9 g/dL (13.3-17.7); MEAN CORPUSCULAR HEMOGLOBIN 26 pg (25-34); MEAN CORPUSCULAR HGB CONC 29 g/dL (32-36); MEAN CORPUSCULAR VOLUME 88 fL (80-99); MEAN PLATELET VOLUME 9.8 fL (9.0-12.2); PLATELET COUNT 340 10^3/uL (130-400); WHITE BLOOD COUNT 8.9 10^3/uL (4.3-11.0)
[2022-08-03 05:24] LABS: INR 1.1 (0.8-1.4)
[2022-08-03 05:33] LABS: CREATININE SERUM 1.21 MG/DL (0.60-1.30); POTASSIUM 4.7 MMOL/L (3.6-5.0)
[2022-08-03] MEDS: RT-ALBUTEROL SULF 2.5 MG/3 ML PRE-MIX VIAL INH SCH ×2 (07:09→11:04)
[2022-08-03 08:00] VITALS: BP 120/64
[2022-08-03] MEDS ORDERED: LIDOCAINE 1% INJ 30 ML (XYLOCAINE) VIAL ONE (08:12)
[2022-08-03] MEDS ORDERED: HEParin (CATH LAB) 2,000 ML IV ONE (08:13)
[2022-08-03] MEDS ORDERED: NS IV 1000 ML 1,000 ML ONE (08:13)
[2022-08-03] MEDS ORDERED: HEParin 1000 UNIT/ML (10ML VIAL) FOR BOLUS ONE (08:47)
[2022-08-03] MEDS ORDERED: NITRO DRIP 25000 MCG/D5W 250 ML IV ONE (08:47)
[2022-08-03] MEDS ORDERED: VERAPAMIL 5 MG/2 ML (CALAN) VIAL IV ONE (08:47)
[2022-08-03] MEDS ORDERED: MIDAZOLAM 2 MG/2 ML (VERSED) VIAL ONE (08:47)
[2022-08-03] MEDS ORDERED: fentaNYL INJ 100 MCG/2 ML AMP ONE (08:47)
[2022-08-03] MEDS ORDERED: ASPIRIN 81 MG CHEW (CHILDREN'S ASA) PO SCH (09:00)
--- NOTE | 2022-08-03 09:18 | Occ Therapy Progress Note ---
Therapy Progress Note OT orders received. Pt currently out of room for heart cath. Per RN, she is unsure if procedure will be done in wrist or groin, thus pt may be on bed rest if performed in groin. OT will check back later this am if patient is able to participate in evaluation. Naty Cornejo OT Aug 03, 2022 09:18
--- NOTE | 2022-08-03 09:21 | Consultation-Cardiology ---
HPI-Cardiology Cardiology Consultation Date of Consultation 08/03/22 Date of Admission Time Seen by Provider: 08:30 Indication: Elevated troponin level HPI 71-year-old gentleman with history of right knee replacement done about 3 weeks ago, since his surgery he has been having multiple complication with recurrent bleeding, anemia, increasing shortness of breath. Patient was seen in the emergency room and [place] for increasing shortness of breath yesterday, he was anemic and received 1 unit of blood transfusion and transferred to our institution. Cardiac enzymes were elevated and continue to be elevated. Patient has been having dyspnea and fatigue but no chest pain. Home Medications & Allergies Allergies: Coded Allergies: codeine (Verified Allergy, Mild, VERTIGO, 02/15/20) hydrocodone (Verified Adverse Reaction, Mild, Nausea,vertigo, 02/21/20) oxycodone (Verified Adverse Reaction, Mild, Nausea,vertigo, 02/21/20) Home Medication List Reviewed: Yes [id number]-Gshlfh Hx Patient Social History Marital Status: Employed/Student: retired Smoking Status: Never a Smoker 2nd Hand Smoke Exposure: No Recent Hopitalizations: No Have you traveled recently?: No Alcohol Use?: No Immunizations Up To Date Date of Pneumonia Vaccine: Sep 07, 2016 Date of Influenza Vaccine: Jul 03, 2019 Past Medical History Discussed below Family Medical History Significant Family History: No Pertinent Family Hx Review of Systems-General Review of Systems Constitutional: see HPI, malaise, weakness EENTM: see HPI, no symptoms reported Respiratory: see HPI; No cough; dyspnea on exertion; No hemoptysis, No orthopnea, No phlegm; short of breath; No stridor, No wheezing, No other Cardiovascular: see HPI; No chest pain, No edema, No Hx of Intervention, No palpitations, No syncope, No vascular heart diseas, No other Gastrointestinal: no symptoms reported, see HPI Genitourinary: no symptoms reported, see HPI Musculoskeletal: no symptoms reported, see HPI Skin: no symptoms reported, see HPI Psychiatric/Neurological: No Symptoms Reported, See HPI Reviewed Test Results Reviewed Test Results Lab Laboratory Tests Test 08/02/22 19:10 08/03/22 04:53 Range/Units Troponin I 0.564 *H 0.728 *H <0.028 NG/ML White Blood Count 8.9 4.3-11.0 10^3/uL Red Blood Count 3.07 L 4.30-5.52 10^6/uL Hemoglobin 7.9 L 13.3-17.7 g/dL Hematocrit 27 L 40-54 % Mean Corpuscular Volume 88 80-99 fL Mean Corpuscular Hemoglobin 26 25-34 pg Mean Corpuscular Hemoglobin Concent 29 L 32-36 g/dL Red Cell Distribution Width 16.0 H 10.0-14.5 % Platelet Count 340 130-400 10^3/uL Mean Platelet Volume 9.8 9.0-12.2 fL Prothrombin Time 15.0 H 12.2-14.7 SEC INR Comment 1.1 0.8-1.4 Sodium Level 141 135-145 MMOL/L Potassium Level 4.7 3.6-5.0 MMOL/L Chloride Level 107 98-107 MMOL/L Carbon Dioxide Level 22 21-32 MMOL/L Anion Gap 12 5-14 MMOL/L Blood Urea Nitrogen 21 H 7-18 MG/DL Creatinine 1.21 0.60-1.30 MG/DL Estimat Glomerular Filtration Rate 63 BUN/Creatinine Ratio 17 Glucose Level 123 H 70-105 MG/DL Calcium Level 9.0 8.5-10.1 MG/DL Physical Exam Physical Exam Vital Signs Vital Signs - First Documented 08/02/22 08/02/22 08/02/22 08/02/22 08/03/22 19:36 20:45 21:05 23:00 02:00 Temp 37.2 Pulse 99 Resp 20 B/P (MAP) 120/72 (90) Pulse Ox 99 O2 Delivery Nasal Cannula O2 Flow Rate 2.00 FiO2 28 Capillary Refill : Height, Weight, BMI Height: 5'11.00" Weight: 240lbs. 0.0oz. [id number]; 35.46 BMI Method:Stated General Appearance: No Apparent Distress, WD/WN Eyes: Bilateral Eye Normal Inspection, Bilateral Eye PERRL, Bilateral Eye EOMI HEENT: PERRL/EOMI, TMs Normal, Normal ENT Inspection, Pharynx Normal, Moist Mucous Membranes Neck: Full Range of Motion, Normal Inspection, Non Tender, Supple, Carotid Bruit Respiratory: Chest Non Tender, Normal Breath Sounds, No Accessory Muscle Use, No Respiratory Distress Cardiovascular: Regular Rate, Rhythm, No Edema, No Gallop, No JVD, No Murmur, Normal Peripheral Pulses Gastrointestinal: Normal Bowel Sounds, No Organomegaly, No Pulsatile Mass, Non Tender, Soft Back: Normal Inspection, No CVA Tenderness, No Vertebral Tenderness Extremity: Normal Capillary Refill, Normal Inspection, Normal Range of Motion, Non Tender, No Calf Tenderness, No Pedal Edema Neurologic/Psychiatric: Alert, Oriented x3, No Motor/Sensory Deficits, Normal Mood/Affect Skin: Normal Color, Warm/Dry Lymphatic: No Adenopathy A/P-Cardiology Admission Diagnosis Non-ST elevation myocardial infarction Paroxysmal atrial fibrillation Coronary artery disease Anemia Assessment/Plan Acute non-ST elevation myocardial infarction, probably exacerbated by severe anemia and atrial fibrillation Recommended cardiac catheterization possible PTCA Paroxysmal atrial fibrillation/flutter Had atrial flutter ablation in 2014 Atrial fibrillation cryoablation on January 15, [address] Kraft, doing well, no further episodes of palpitation were reported, maintained on Cardizem and Xarelto, seen by Dr Kraft and using Flecainide as pill in pocket, has two incident last week where he took Flecainide and lasted for about 3 hours. Status post loop monitor implantation on February 04, 2022. Site is healing well, having significant bruising around the site. Has been having increasing frequency of episodes of atrial fibrillation and flecainide was increased to 100 mg twice daily, feeling better. Still having occasional palpitation Coronary artery disease, last stress test was done in 2018 showing no ischemia or infarction with ejection fraction 53%. Having non-ST elevation myocardial infarction, planning for cardiac catheterization possible PTCA Generalized fatigue, loss of energy, shortness of breath Severe anemia, recurrent bleed from his right knee post knee replacement surgery, received blood transfusion, continue to monitor H&H Status post right knee replacement done in [facility]. Recurrent bleed from the surgical site, required sutures and multiple urgent care visits 2D echo was done on November 14, 2021 showing normal LV size with EF 65 to 70%, mild mitral regurgitation, PA pressure 20 mmHg. [id number] score of 4, yearly risk of stroke without oral anticoagulation is 4 percent, maintained on Xarelto Hypertension, well controlled on current medication. Continue to monitor Hyperlipidemia, maintained on Lipitor 10 mg daily, patient was tablets, lipid profile done on December 16, 2021 showing total cholesterol 177, triglyceride 215, HDL 35, LDL 99, we discussed limiting carbohydrate intake. Patient is scheduled for lipid profile later this week with Dr. DIAZ. COPD, obstructive sleep apnea, using C Pap machine History of bilateral central retinal vein occlusion Nonobstructive carotid artery stenosis per carotid duplex done in April 2021, I will evaluate US Hypothyroidism, had initial elevated TSH, followed and managed by Dr. 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 Aguirre and he is scheduled for follow-up History of tonsillectomy, right knee arthroscopy, laser, total thyroidectomy, squamous cell carcinoma excision. Addendum on August 03, 2022 at 9:20 AM Cardiac catheterization was carried out showing severe multivessel coronary artery disease, total occlusion of the right coronary artery with collaterals filling from the left, subtotal occlusion in the mid LAD and the mid circumflex artery. Normal left ventricular end-diastolic pressure. Arrangement will be made to transfer the patient for evaluation for CABG Final diagnosis Coronary artery disease Non-ST elevation myocardial infarction Paroxysmal atrial fibrillation Anemia EMI DIAL MD Aug 03, 2022 09:21
--- NOTE | 2022-08-03 09:22 | Cardiac Procedure Note-CS/ASA ---
Pre-Procedure Note Pre-Op Procedure Note Date of Available H&P: Aug 03, 2022 Date H&P Reviewed: Aug 03, 2022 Time H&P Reviewed: 08:30 History & Physical: H&P Reviewed, Patient Examed, No changes noted Pre-Operative Diagnosis: NSTMI Conscious Sedation Pre-Proced Time 08:30 ASA Score 3 For ASA 3 and 4: Consider anesthesia and medical clearance. Also, for patients with a history of failed moderate sedation consider anesthesia. Airway Lungs Heart ASA score ASA 1: a normal healthy patient ASA 2: a patient with a mild systemic disease (mid diabetes, controlled hypertension, obesity ASA 3: a patient with a severe systemic disease that limits activity (angina, COPD, prior Myocardial infarction) ASA 4: a patient with an incapacitating disease that is a constant threat to life (CHF, renal failure) ASA 5: a moribund patient not expected to survive 24 hrs. (ruptured aneurysm) ASA 6: a declared brain- patient whose organs are being harvested. For emergent operations, add the letter E after the classification Mallampati Classification Grade 3 Sedation Plan Analgesia, Amnesia, Plan communicated to team members, Discussed options with patient/fam, Discussed risks with patient/fam The patient is an appropriate candidate to undergo the planned procedure, sedation, and anesthesia. The patient immediately re-assessed prior to indication. EMI DIAL MD Aug 03, 2022 09:22
[2022-08-03] MEDS ORDERED: NS IV 1000 ML 1,000 ML IV SCH (09:30)
--- NOTE | 2022-08-03 09:32 | Cardiac Cath Report ---
Cardiac Cath Report Physician (s)/Tire And Tube Repairer (s) Physician EMI DIAL MD Pre-Procedure Diagnosis Pre-Procedure Diagnosis: NSTMI Post-Procedure Note Procedure Start Date: Aug 03, 2022 Name of Procedure: Left heart catheterization Findings/Procedure Note PROCEDURE NOTE: 71-year-old gentleman with history of paroxysmal atrial fibrillation, history of ablation, admitted with severe anemia and shortness of breath had elevation in troponin, no acute EKG changes. Cardiac catheterization was advised. After explaining the procedure to the patient, all pros and cons were explained, all questions were answered. The patient signed the consent and then he was placed on the cardiac catheterization laboratory. Groin was prepped SL fashion local anesthesia was used. Sheath placed in the right radial artery, [place] catheter was advanced and prolapsed to the left ventricular cavity, pressure was measured, pullback LV to aorta was done, engage the right and left coronary system, multiple views were obtained. At the end of the procedure the sheath was removed. Vascular band was used FINDINGS: Hemodynamics LV 117/15, end-diastolic pressure 15 Aorta 107/61 mean of 80 ANATOMY: Left Main is free of obstructive disease Left Anterior Descending has ulcerated plaque with severe stenosis in the mid LAD Left Circumflex has severe stenosis in the mid circumflex artery Right Coronary Artery is dominant artery, occluded at the midportion, getting filled by collaterals from the left side LV Gram was not done, pressure was measured CONCLUSION: 1. Multivessel coronary artery disease with ulcerated plaque and severe stenosis in the mid LAD, severe stenosis in the mid circumflex artery and occluded right coronary artery receiving collaterals from the left system 2. Normal left ventricular end-diastolic pressure DISCUSSION AND RECOMMENDATION: Patient had significant anemia which exacerbated his symptoms. Has multivessel coronary artery disease, arrangement to transfer the patient for evaluation for CABG was made I discussed the management plan with Dr. Hannon in [facility]. Anesthesia Type: Conscious Sedation Estimated blood loss (mL): 15 ml Contrast Amount: 31 ml Total Radiation Dose: 465 mGy Post-Procedure Diagnosis Post-operative diagnosis: Non-ST elevation myocardial infarction Coronary artery disease Paroxysmal atrial fibrillation Anemia EMI DIAL MD Aug 03, 2022 09:32
--- NOTE | 2022-08-03 09:33 | Discharge Inst-Post CATH ---
Discharge Inst-CATH/EP Problems Reviewed?: Yes Post Cardiac Cath/EP D/C Inst Follow Up/Plan Appointment with Dr. Burrows's office in 2 to 4 weeks <b>CARDIAC CATH/EP PROCEDURE DISCHARGE INSTRUCTIONS</b> ACTIVITY * Go Home directly and rest. * Limit activity of the leg (or wrist if it was used) for 7 days including aer obics, swimming, jogging, bicycling, etc. * Restrict stair-climbing for 7 days if possible, if not, climb up with your non-cath leg, then bring together on the same step. * Avoid lifting, pushing, pulling or excessive movement of the affected extremi ty for 7 days. * Customary sexual activity may be resumed after 2 days-use caution not to use a position that strains or causes pain to the affected extremity. * No driving for 24 hours. * NO SMOKING. * Avoid straining for bowel movements for 7 days. * Gentle walking on level ground is allowed. * Returning to work will depend on the type of procedure and the results. Your doctor will discuss this with you. CALL YOUR DOCTOR FOR ANY OF THE FOLLOWING: *If bleeding from the puncture site occurs- Apply gentle pressure to site with clean cloth and call your doctor or EMS. * If a knot or lump forms under the skin, increases in size, or causes pain. * If bruising appears to be worsening or moving further down your leg instead of disappearing. * Temperature above 101 F. CARE OF YOUR GROIN INCISION; * Bruising or purple discoloration of the skin near the puncture site is common. * You may shower only, no bathtub bathing for 5 days. Be careful to avoid slipping as your leg may feel stiff. * If a closure device was used on your femoral artery, please see the attached guide regarding care of the device and your leg. * Leave dressing on FOR 24 hours. CARE OF YOUR WRIST INCISION; * Bruising or purple discoloration of the skin near the puncture site is common. * You may shower. * DO NOT submerge wrist. * Leave dressing on FOR 24 hours. EMI BURROWS MD Aug 03, 2022 09:33
--- NOTE | 2022-08-03 11:12 | Occupational Therapy Eval ---
OT Evaluation-General/PLF Medical Diagnosis Admission Date Aug 02, 2022 at 19:09 Medical Diagnosis: NSTEMI Onset Date: Aug 02, 2022 Therapy Diagnosis Therapy Diagnosis: Reduced ADL status Height/Weight Height (Feet): 5 Height (Inches): 11.00 Weight (Pounds): 240 Weight (Ounces): 0.0 Precautions Precautions/Isolations: Standard Precautions Referral Physician: Mg Referral Reason: Evaluation/Treatment Medical History Pertinent Medical History: Atrial Fib, CAD, COPD, HTN, LA Current History Pt came to ER with SOB. He had just received a R TKA 3 weeks ago. Pt lives in a multi-level home with his . All of his main living areas is on the second floor. He stated that he is able to manage the stairs and has a chair lift. Pt and pt's reported that he needs assistance with dressing/threading his R leg through underwear, pants and socks. He is able to manage all other ADLs. completes all IADLs. He is legally blind in both eyes. He has been using a walker since his knee surgery. Reviewed History: Yes Social History Home: Multilevel Current Living Status: Spouse Entry Into Home: Stairs With Railing ADL-Prior Level of Function SCALE: Activities may be completed with or without assistive devices. 9-Ebgzgiuwqe-zkzuxgf completes the activity by him/herself with no assistance from a helper. 5-Set-up or Clean-up Assistance-helper sets up or cleans up; patient completes activity. [place] assists only prior to or following the activity. 4-Supervision or Touching Assistance-helper provides verbal cues and/or touching/steadying and/or contact guard assistance as patient completes activity. Assistance may be provided throughout the activity or intermittently. 3-Partial/Moderate Assistance-helper does LESS THAN HALF the effort. [place] lifts, holds or supports trunk or limbs, but provides less than half the effort. 2-Substantial/Maximal Assistance-helper does MORE THAN HALF the effort. [place] lifts or holds trunk or limbs and provides more than half the effort. 4-Gyotpkuah-gyffjh does ALL the effort. Patient does none of the effort to complete the activity. Or, the assistance of 2 or more helpers is required for the patient to complete the activity. If activity was not attempted, code reason: 7-Patient Refused. 9-Not Applicable-not attempted and the patient did not perform the activity before the current illness, exacerbation or injury. 10-Not Attempted due to Environmental Limitations-(lack of equipment, weather restraints, etc.). 88-Not Attempted due to Medical Conditions or Safety Concerns. Self Care: Needed Some Help Functional Cognition: Independent DME/Equipment: Shower Drive Self: No OT Current Status Subjective Pt was laying in bed upon arrival with his present. He agreed to a therapy eval but reported some grogginess. Pt reported that he may be leaving today or tomorrow for a CABG. Appearance Pt was left with respiratory therapist and in room. All needs within reach. Mental Status/Objective Patient Orientation: Person, Place, Time, Situation Attachments: IV, Oxygen (3.5 L), Telemetry Current Glasses/Contacts: Yes Hand Dominance: Right Upper Extremity ROM WNL Upper Extremity Strength Not formally tested ADL-Treatment Lower Body Dressing (QC): 3 (mod assist for R leg threading) On/Off Footwear (QC): 3 (min-mod assist for R sock due to knee surgery) Pt recently returned to room from cardiac cath procedure. Per RN, pt able to participate in evaluation however should not complete any R wrist ROM. Supine<>sit: SBA and increased time due to non weight bearing/movement of R wrist. While sitting EOB, pt able to demonstrate ability to perform cross over method with LLE, close SBA for safety with sitting balance. Pt unable to perform same movement with RLE secondary to recent knee surgery. He reports that his has been completing LB adls for him since surgery. Due to c/o grogginess, transfers/standing tasks not performed this date. Pt able to scoot up in bed, yet requires cues to not bear weight through R hand. Pt possibly transferring to outside hospital for CABG. He would benefit from skilled OT services to further address ADL self-care tasks and potentially offer family training or home/ADL modification if necessary. Education OT Patient Education: Correct positioning, Modified ADL techniques, Progress toward Goal/Update tx plan, Reviewed precautions, Rehab process, Safety issues Teaching Recipient: Patient, Family Teaching Methods: Discussion Response to Teaching: Verbalize Understanding, Reinforcement Needed OT Offshore Wind Turbine Technician Goals [facility] Goals Time Frame: Aug 14, 2022 Oral Hygiene (QC): 6 Toileting Hygiene (QC): 6 Shower/Bathe Self (QC): 6 Upper Body Dressing (QC): 6 Lower Body Dressing (QC): 5 On/Off Footwear (QC): 5 Additional Goals: 1-Demonstrate ADL Tasks, 2-Verbalize Understanding, 3- ImproveStrength/Eliezer 1=Demonstrate adherence to instructed precautions during ADL tasks. 2=Patient will verbalize/demonstrate understanding of assistive devices/modifications for ADL. 3=Patient will improve strength/tolerance for activity to enable patient to perform ADL's. OT Education/Plan Problem List/Assessment Assessment: Decreased Activ Tolerance, Decreased Safety Aware, Impaired I ADL's, Impaired Self-Care Skills Discharge Recommendations Plan/Recommendations: Continue POC Therapy Discharge Recommendati: Post Acute OT Equpiment Recommendations-D/C: Bath Chair Treatment Plan/Plan of Care Treatment,Training & Education: Yes Patient would benefit from OT for education, treatment and training to promote independence in ADL's, mobility, safety and/or upper extremity function for ADL's. Plan of Care: ADL Retraining, Caregiver Training, Functional Mobility, Group Exercise/Act as Ind, UE Funct Exercise/Act Treatment Duration: Aug 14, 2022 Frequency: 3 times per week (3-5x/week) Estimated Hrs Per Day: .25 hour per day Agreement: Yes Rehab Potential: Fair Time Start Time: 10:53 Stop Time: 11:04 DATE: Aug 03, 2022 Total Time Billed (hr/min): 11 Billed Treatment Time 1 visit Naty De La Paz OT Aug 03, 2022 11:12
--- NOTE | 2022-08-03 11:56 | Diagnostic Imaging Report ---
PROCEDURE: US right lower extremity venous. TECHNIQUE: Multiple real-time grayscale images were obtained over the right lower extremity in various projections. Additional spectral analysis and color Doppler duplex images were also obtained. INDICATION: Post right knee replacement with right lower extremity edema and pain. FINDINGS: Color Doppler imaging shows normal flow throughout the venous system. There is normal compression and augmentation of flow. No significant effusion noted. IMPRESSION: No evidence of deep venous thrombosis. Dictated by: Dictated on workstation # [id number]
[2022-08-03] MEDS: FLECAINIDE 100 MG (TAMBOCOR) TAB PO SCH (12:21)
--- NOTE | 2022-08-03 14:08 | Physical Therapy Progress Note ---
Therapy Progress Note Order for evaluation received. Patient was getting a heart cath in the morning. In the afternoon patient was already discharged and gone. ROSA BRIGGS PT Aug 03, 2022 14:08
== END 2022-08-03 13:55 | disposition short-term general hospital (02) | DRG 281 ==
LOC: CSD 19:09
PROVIDERS: ADMIT Family Medicine; ATTEND Family Medicine
PROC: 4A023N7 Measurement of Cardiac Sampling and Pressure, Left Heart, Percutaneous Approach (ICD-10-PCS; principal; 2022-08-03)
PROC: B2111ZZ Fluoroscopy of Multiple Coronary Arteries using Low Osmolar Contrast (ICD-10-PCS; 2022-08-03)
DX: I21.4 Non-ST elevation (NSTEMI) myocardial infarction (principal); I48.92 Unspecified atrial flutter; M96.830 Postprocedural hemorrhage of a musculoskeletal structure following a musculoskeletal system procedure; D64.9 Anemia, unspecified; I48.0 Paroxysmal atrial fibrillation; I25.10 Atherosclerotic heart disease of native coronary artery without angina pectoris; Z96.651 Presence of right artificial knee joint; I10 Essential (primary) hypertension; E78.5 Hyperlipidemia, unspecified; J44.9 Chronic obstructive pulmonary disease, unspecified; G47.33 Obstructive sleep apnea (adult) (pediatric); I65.29 Occlusion and stenosis of unspecified carotid artery; E03.9 Hypothyroidism, unspecified; Z85.828 Personal history of other malignant neoplasm of skin; Z88.5 Allergy status to narcotic agent
CPT/HCPCS: 36415; 80048; 84484; 85027; 85610; 93005; 93458; 94640; 94660; 94760